=== PATIENT | male | born 1995 | race Caucasian/White ===

== ENCOUNTER 2024-06-02 10:37 | Emergency (ER) | payer SELFPAY ==
[2024-06-02] MEDS: Albuterol 0.083% 2.5 MG/3 ML Neb Soln NEB ONE (10:50)
[2024-06-02] MEDS: methylPREDNISolone Sodium Succinate 125 MG/2 ML SDV IVPUSH ONE (11:21)
[2024-06-02] MEDS: Albuterol/Ipratropium 3.0-0.5 MG/3 ML Neb Soln NEB ONE (11:28)
[2024-06-02] MEDS: Sodium Chloride 0.9% 1,000 ML IV ONE (11:32)
== END 2024-06-02 14:25 | disposition home or self-care (01) ==
LOC: KA.ED 10:37
DX: J45.901 Unspecified asthma with (acute) exacerbation (principal); Z91.030 Bee allergy status
CPT/HCPCS: 71045; 94640; 96361; 96374; 99285-25; J2919; J7030; J7613-GY; J7620-GY

== ENCOUNTER 2024-07-09 21:55 | Observation (INO) | payer SELFPAY ==
[2024-07-09] MEDS: Albuterol/Ipratropium 3.0-0.5 MG/3 ML Neb Soln NEB ONE (22:12)
[2024-07-09] MEDS: methylPREDNISolone Sodium Succinate 125 MG/2 ML SDV IVPUSH ONE (22:15)
[2024-07-09] MEDS: Albuterol 0.083% 2.5 MG/3 ML Neb Soln NEB ONE ×3 (22:28→23:19)
[2024-07-09] MEDS: Albuterol/Ipratropium 3.0-0.5 MG/3 ML Neb Soln ONE (22:28)
[2024-07-09] MEDS: methylPREDNISolone Sodium Succinate 125 MG/2 ML SDV ONE (22:28)
[2024-07-09] MEDS: Albuterol 0.083% 2.5 MG/3 ML Neb Soln ONE (22:32)
[2024-07-09 22:38] LABS: BASOPHILS ABSOLUTE AUTO 0.08 10^3/uL (0.00-0.10); BASOPHILS PERCENT AUTO 0.5 % (0.0-1.0); EOSINOPHILS PERCENT AUTO 10.2 % (1.0-3.0); HEMATOCRIT 50.2 % (40.0-52.0); HEMOGLOBIN 16.3 g/dL (13.0-17.0); IMMATURE GRAN ABSOLUTE AUTO 0.03 10^3/uL (0.00-0.50); IMMATURE GRAN PERCENT AUTO 0.2 % (0.0-5.0); LYMPHOCYTES ABSOLUTE AUTO 1.98 10^3/uL (1.00-4.00); LYMPHOCYTES PERCENT AUTO 12.7 % (20.0-40.0); MEAN CORPUSCULAR HEMOGLOBIN 28.9 pg (27.0-31.0); MEAN CORPUSCULAR HGB CONC 32.5 g/dL (32.0-36.0); MEAN PLATELET VOLUME 9.6 fL (7.4-10.4); MONOCYTES ABSOLUTE AUTO 1.72 10^3/uL (0.10-0.80); NEUTROPHILS ABSOLUTE AUTO 10.21 10^3/uL (2.50-7.00); NEUTROPHILS PERCENT AUTO 65.4 % (50.0-70.0); PLATELET COUNT,PLT 311 10^3/uL (150-400); RED BLOOD CELL COUNT 5.64 10^6/uL (4.50-6.00); RED CELL DISTRIBUTION WIDTH 14.1 % (11.5-14.5); WHITE BLOOD CELL COUNT,WBC 15.62 10^3/uL (5.00-10.00)
[2024-07-09 22:55] LABS: ANION GAP 12.2 mmol/L (5-15); BLOOD UREA NITROGEN,BUN 13 mg/dL (7-18); CALCIUM 9.4 mg/dL (8.7-10.3); CARBON DIOXIDE,CO2 29.8 mmol/L (21.0-32.0); CHLORIDE,CL 102 mmol/L (98-107); CREATININE 0.77 mg/dL (0.51-1.17); ESTIMATED GFR 126 mL/min (>=60); GLUCOSE RANDOM 111 mg/dL (70-140); SODIUM,NA 140 mmol/L (136-145)
[2024-07-09] MEDS: Albuterol 0.083% 2.5 MG/3 ML Neb Soln NEB PRN (23:40)
[2024-07-10] MEDS ORDERED: Ondansetron 4 MG Tab.DIS PO PRN (00:20)
[2024-07-10] MEDS: Magnesium Sulfate/Water 2 GM in Premix Bag 1 BAG IV ONE (01:22)
[2024-07-10] MEDS: Acetaminophen 500 MG Tab PO PRN (01:31)
[2024-07-10 07:11] LABS: BASOPHILS ABSOLUTE AUTO 0.02 10^3/uL (0.00-0.10); BASOPHILS PERCENT AUTO 0.3 % (0.0-1.0); EOSINOPHILS ABSOLUTE AUTO 0.01 10^3/uL (0.10-0.30); EOSINOPHILS PERCENT AUTO 0.1 % (1.0-3.0); HEMATOCRIT 45.4 % (40.0-52.0); HEMOGLOBIN 15.1 g/dL (13.0-17.0); IMMATURE GRAN ABSOLUTE AUTO 0.02 10^3/uL (0.00-0.50); IMMATURE GRAN PERCENT AUTO 0.3 % (0.0-5.0); LYMPHOCYTES ABSOLUTE AUTO 0.73 10^3/uL (1.00-4.00); LYMPHOCYTES PERCENT AUTO 10.8 % (20.0-40.0); MEAN CORPUSCULAR HEMOGLOBIN 29.4 pg (27.0-31.0); MEAN CORPUSCULAR HGB CONC 33.3 g/dL (32.0-36.0); MEAN CORPUSCULAR VOLUME 88.5 fL (82.0-92.0); MEAN PLATELET VOLUME 9.8 fL (7.4-10.4); MONOCYTES ABSOLUTE AUTO 0.28 10^3/uL (0.10-0.80); MONOCYTES PERCENT AUTO 4.2 % (2.0-8.0); NEUTROPHILS ABSOLUTE AUTO 5.68 10^3/uL (2.50-7.00); NEUTROPHILS PERCENT AUTO 84.3 % (50.0-70.0); PLATELET COUNT,PLT 289 10^3/uL (150-400); RED BLOOD CELL COUNT 5.13 10^6/uL (4.50-6.00); RED CELL DISTRIBUTION WIDTH 14.2 % (11.5-14.5); WHITE BLOOD CELL COUNT,WBC 6.74 10^3/uL (5.00-10.00)
[2024-07-10 07:26] LABS: ANION GAP 17.4 mmol/L (5-15); CALCIUM 9.6 mg/dL (8.7-10.3); CARBON DIOXIDE,CO2 25.2 mmol/L (21.0-32.0); CREATININE 0.75 mg/dL (0.51-1.17); EST CRCL DRUG DOSING (CG) 162.39 mL/min; MAGNESIUM 2.1 mg/dL (1.8-2.4); POTASSIUM,K 4.6 mmol/L (3.5-5.1)
[2024-07-10] MEDS: predniSONE 20 MG Tab PO SCH (07:31)
[2024-07-10] MEDS: Formoterol/Mometasone 200-5 MCG 8.8 GM Inhaler INH SCH (07:32)
[2024-07-10] MEDS: methylPREDNISolone Sodium Succinate 125 MG/2 ML SDV IM ONE (13:28)
[2024-07-10] MEDS: methylPREDNISolone Sodium Succinate 125 MG/2 ML SDV IV ONE (13:40)
[2024-07-10] MEDS ORDERED: Montelukast 10 MG Tab PO SCH (21:00)
== END 2024-07-10 14:35 | disposition home or self-care (01) ==
LOC: KA.ED 21:55 → KA.MS 23:30
PROVIDERS: ADMIT Physician Assistant Surgical; ATTEND Family Medicine
DX: J45.901 Unspecified asthma with (acute) exacerbation (principal); Z79.899 Other long term (current) drug therapy; Z91.030 Bee allergy status
CPT/HCPCS: 36415; 71045; 80048; 83605; 83735; 85025; 94640; 96365; 96366; 96374; 96375; 96376; 99223-GT; 99284; 99285-25; A9270-GY; G0378; J2919; J3475; J7512; J7613-GY; J7620-GY; Q3014